=== PATIENT | female | born 1965 | race Caucasian/White ===

== ENCOUNTER 2018-02-10 16:20 | Emergency (ER) | payer MEDICAID, MEDICARE ==
[~2018-02-10] VITALS: Ht 149.9 cm; Wt 81.6 kg
[2018-02-10 18:00] VITALS: BP 121/78
[2018-02-10] MEDS ORDERED: KETOROLAC TROMETH 60MG/2ML VIAL IM ONE ×2 (19:30)
[2018-02-10] MEDS ORDERED: METHOCARBAMOL 500 MG TAB PO ONE ×2 (19:30)
== END 2018-02-10 19:43 | disposition home or self-care (01) ==
LOC: ER 16:24
DX: M62.838 Other muscle spasm (principal); Z88.6 Allergy status to analgesic agent; Z88.0 Allergy status to penicillin; J45.909 Unspecified asthma, uncomplicated
CPT/HCPCS: 72040; 96372; 99284; J1885

== ENCOUNTER 2018-02-27 13:16 | Emergency (ER) | payer MEDICAID ==
[~2018-02-27] VITALS: Ht 154.9 cm; Wt 67.6 kg
[2018-02-27 14:28] VITALS: BP 110/71
[2018-02-27] MEDS ORDERED: cefTRIAXone SOD 1,000 MG VL IM ONE (15:30)
[2018-02-27] MEDS ORDERED: HYDROcodone-ACET 5/325MG TAB PO ONE (15:30)
== END 2018-02-27 16:12 | disposition home or self-care (01) ==
LOC: ER 13:16
DX: K04.7 Periapical abscess without sinus (principal); F17.210 Nicotine dependence, cigarettes, uncomplicated; J45.909 Unspecified asthma, uncomplicated; Z88.0 Allergy status to penicillin; Z88.6 Allergy status to analgesic agent
CPT/HCPCS: 93005; 96372; 99283; J0696